=== PATIENT | male | born 1990 | race Two or more races ===

== ENCOUNTER 2018-11-08 11:39 | Emergency (ER) | payer SELFPAY ==
[~2018-11-08] VITALS: Ht 165.1 cm; Wt 68.0 kg
[2018-11-08 11:50] VITALS: BP 122/63
[2018-11-08] MEDS ORDERED: NKM (11:53)
--- NOTE | 2018-11-08 11:55 | NUR ---
ED Nurse Note: Pt came in due to rectal bleeding, bright rd with pain. Denies abd pain and pain at the site at this time. Pt AAO x4, ambulates with non labored breathing. VSS.
[2018-11-08] MEDS ORDERED: Ketorolac 30mg Inj IV ONE (12:15)
[2018-11-08] MEDS ORDERED: Isovue-300 100ml vial INJ PRN (12:15)
--- NOTE | 2018-11-08 12:35 | Emergency Room Report ---
History of Present Illness General Chief Complaint: Pain Source: Patient Present Illness HPI 28-year-old male patient presents the ER complaining of rectal pain and blood on the toilet paper for the past 4 days. Reports pain with sitting. Reports pain with defecation. Reports able to pass gas. Reports able to pass stool, notes blood in stool. Reports bright red blood in stool. Denies black stool. Reports dizziness symptoms during this time. Denies fainting or syncope. Denies history of fainting or syncope. denies diarrhea or vomiting. Also reports chest pain during this time, states has been present intermittently for months. Reports history of similar symptoms over a year ago. Denies history of heart attack. Reports history of "heart beating too fast", states does not take medication for this. Denies hx of high blood pressure. Denies taking medications. Denies fever, shortness of breath, abdominal pain. Denies other aggravating or relieving factors. Denies anal sex. Allergies: Coded Allergies: No Known Allergies (Unverified , 11/08/18) Patient History Past Medical History: see triage record Reviewed Nursing Documentation: PMH: Agreed; PSxH: Agreed Nursing Documentation-PMH Past Medical History: No History, Except For Review of Systems All Other Systems: negative except mentioned in HPI Physical Exam Vital Signs Date Time Temp Pulse Resp B/P (MAP) Pulse Ox O2 Delivery O2 Flow Rate FiO2 11/08/18 11:50 97.7 74 16 122/63 97 Room Air Sp02 EP Interpretation: reviewed, normal General Appearance: well appearing, no apparent distress, alert, GCS 15, non- toxic Head: normocephalic, atraumatic Eyes: bilateral eye normal inspection, bilateral eye PERRL ENT: hearing grossly normal, normal pharynx, no angioedema, normal voice, uvula midline, moist mucus membranes Neck: full range of motion Respiratory: lungs clear, normal breath sounds, no rhonchi, no respiratory distress, no accessory muscle use, no wheezing, speaking full sentences Cardiovascular #1: regular rate, rhythm, no edema Rectal: normal rectal tone, heme negative stool, prostate non-tender, other - no palpable hemorrhoids, no fisure, no anal skin tag Genitourinary: no CVA tenderness Musculoskeletal: back normal, digits/nails normal, gait/station normal, normal range of motion, non-tender Neurologic: alert, oriented x3, responsive, motor strength/tone normal, sensory intact Psychiatric: mood/affect normal Skin: no rash Medical Decision Making PA Attestation Dr. Foster is my supervising Physician whom patient management has been discussed with. Diagnostic Impression: Primary Impression: Rectal pain Additional Impressions: Hemorrhoid Degenerative disc disease Nonspecific chest pain ER Course Pt. presents to the ED c/o blood on toilet paper and chest pain. Ddx considered but are not limited to constipation, anal tag, anal fissure, diverticulitis, hemorrhoids, abscess, IL, anxiety, UTI. Vital signs: are WNL, pt. is afebrile No orders required at this time. No signs of anemia, no pallor, patient reports no light headedness. ER COURSE: CBC and CMP unremarkable, mild anemia noted, does not require blood transfusion at this time. No elevation WBCs or LFTs. Provide with IV fluids. UA shows no signs of infection. Troponin within normal limits, EKG unremarkable, no ST elevations or atrial fibrillation. Low suspicion for IL. Lungs clear to auscultation. Follow-up with drafter geophysical, no suspicion for cardiac etiology of symptoms at this time. Chest pain intermittent and present for the past year. CT abdomen pelvis with contrast shows no acute findings, mild DJD noted at L4-L5 , old granulomatous disease. Discuss results with the patient. Provided patient with copy of results. Instructed patient to followup with PCP and discuss results of report with patient, discuss need for further treatment and referral. Fecal occult blood positive. other - no palpable veins, no TTP, stool brown in color, no red or black stool on rectal exam, no anal fissure, no skin tag No visible hemorrhoids. No anal fissure, no skin tags. No palpable veins or hemorrhoids on rectal exam. Discuss patient care with Dr. Foster. Will treat patient for hemorrhoids with Anusol, followup with primary care and discuss referral to GI and surgery as needed. Provide Colace for constipation. Instructed patient to drink plenty of fluids. Provided with contact information for GI specialist and soil fertility extension specialist. Provided with contact information for free low-cost healthcare clinics. ER precautions given. DISCHARGE: Rx provided for Anusol Rx provided for Colace Rx provided for Ibuprofen At this time pt is stable for d/c to home. Patient is resting comfortably, in no acute distress, nontoxic appearing, talking without difficulty. Patient to take medications as instructed Will provide with patient care instructions and any necessary prescriptions. Care plan and follow-up instructions provided. Patient instructed to follow-up with primary care provider in 3 - 5 days. Patient questions asked and answered. Patient reports understanding and agreement to treatment plan. ER precautions given. Patient instructed to return to ER immediately for any new or worsening of symptoms including but not limited to increasing SOB, persistent fever. - Please note that this Emergency Department Report was dictated using [employer] medicine chief technologist technology software, occasionally this can lead to erroneous entry secondary to interpretation by the dictation equipment. Labs Test 11/08/18 12:30 White Blood Count 4.5 K/UL (4.8-10.8) Red Blood Count 4.63 M/UL (4.70-6.10) Hemoglobin 13.9 G/DL (14.2-18.0) Hematocrit 39.7 % (42.0-52.0) Mean Corpuscular Volume 86 FL (80-99) Mean Corpuscular Hemoglobin 29.9 PG (27.0-31.0) Mean Corpuscular Hemoglobin Concent 34.9 G/DL (32.0-36.0) Red Cell Distribution Width 11.4 % (11.6-14.8) Platelet Count 189 K/UL (150-450) Mean Platelet Volume 7.6 FL (6.5-10.1) Neutrophils (%) (Auto) 48.6 % (45.0-75.0) Lymphocytes (%) (Auto) 39.4 % (20.0-45.0) Monocytes (%) (Auto) 10.2 % (1.0-10.0) Eosinophils (%) (Auto) 0.8 % (0.0-3.0) Basophils (%) (Auto) 1.0 % (0.0-2.0) Urine Color Pale yellow Urine Appearance Slightly cloudy Urine pH 7 (4.5-8.0) Urine Specific [place] 1.015 (1.005-1.035) Urine Protein Negative (NEGATIVE) Urine Glucose (UA) Negative (NEGATIVE) Urine Ketones Negative (NEGATIVE) Urine Blood Negative (NEGATIVE) Urine Nitrite Negative (NEGATIVE) Urine Bilirubin Negative (NEGATIVE) Urine Urobilinogen Normal MG/DL (0.0-1.0) Urine Leukocyte Esterase Negative (NEGATIVE) Sodium Level 141 MMOL/L (136-145) Potassium Level 3.6 MMOL/L (3.5-5.1) Chloride Level 105 MMOL/L (98-107) Carbon Dioxide Level 27 MMOL/L (21-32) Anion Gap 9 mmol/L (5-15) Blood Urea Nitrogen 16 mg/dL (7-18) Creatinine 0.7 MG/DL (0.55-1.30) Estimat Glomerular Filtration Rate > 60 mL/min (>60) Glucose Level 97 MG/DL (74-106) Calcium Level 8.9 MG/DL (8.5-10.1) Total Bilirubin 0.4 MG/DL (0.2-1.0) Aspartate Amino Transf (AST/SGOT) 30 U/L (15-37) Alanine Aminotransferase (ALT/SGPT) 49 U/L (12-78) Alkaline Phosphatase 111 U/L (46-116) Troponin I 0.031 ng/mL (0.000-0.056) Total Protein 7.4 G/DL (6.4-8.2) Albumin 4.0 G/DL (3.4-5.0) Globulin 3.4 g/dL Albumin/Globulin Ratio 1.2 (1.0-2.7) Lipase 80 U/L (73-393) EKG Diagnostic Results Rate: normal Rhythm: NSR ST Segments: no acute changes ASA given to the pt in ED: No PA Scribe Text Pierre Jacobo PA-C Rhythm Strip Diag. Results EP Interpretation: yes Rate: 63 Rhythm: NSR, no PVC's, no ectopy PA Scribe Text Pierre Jacobo PA-C CT/MRI/US Diagnostic Results CT/MRI/US Diagnostic Results : Imaging Test Ordered: CT abdomen pelvis with contrast Impression No acute findings in the abdomen or pelvis identified. Mild degenerative disc disease at L4-5. Old granulomatous disease Last Vital Signs Date Time Temp Pulse Resp B/P (MAP) Pulse Ox O2 Delivery O2 Flow Rate FiO2 11/08/18 11:50 97.7 16 122/63 97 Room Air 11/08/18 11:50 74 Status: improved Disposition: HOME, SELF-CARE Condition: Stable Scripts Ibuprofen* (MOTRIN*) 600 Mg Tablet 600 MG ORAL Q8H PRN for For Pain, #30 TAB 0 Refills Prov: Tyson Jacobo 11/08/18 Docusate Sodium* (COLACE*) 100 Mg Capsule 100 MG ORAL THREE TIMES A DAY, #30 CAP Prov: Tyson Jacobo 11/08/18 Hydrocortisone Acetate* (ANUSOL-HC*) 25 Mg Supp.rect 1 SUPP RECTAL TWICE A DAY, #20 SUPP Prov: Tyson Jacobo 11/08/18 Referrals: NOT CHOSEN IPA/MD,REFERRING (PCP) Patient Instructions: Degenerative Disk Disease, Hemorrhoids, [id number], Nonspecific Chest Pain, [id number] Additional Instructions: Followup with primary care provider in 3 -5 days. Follow-up with GI specialist. Follow-up with solar energy sales specialist to have cardiac stress testing performed. Drink plenty fluids. High-fiber diet. Take Colace to help soften stool. Take medications as directed. Patient questions asked and answered. ER precautions given, patient instructed to return to ER immediately for any new or worsening of symptoms. Tyson Jacobo Nov 08, 2018 12:35
[2018-11-08 13:00] LABS: APPEARANCE,URINE SLIGHTLY CLOUDY; BILIRUBIN, URINE NEGATIVE (NEGATIVE); COLOR,URINE PALE YELLOW; GLUCOSE, URINE (UA) NEGATIVE (NEGATIVE); KETONES,URINE NEGATIVE (NEGATIVE); LEUKOCYTE ESTERASE ,URINE NEGATIVE (NEGATIVE); NITRITE,URINE NEGATIVE (NEGATIVE); PH,URINE 7 (4.5-8.0); PROTEIN,URINE NEGATIVE (NEGATIVE); UROBILINOGEN,URINE NORMAL MG/DL (0.0-1.0)
[2018-11-08 13:02] LABS: EOSINOPHILS % (AUTO) 0.8 % (0.0-3.0); HEMATOCRIT 39.7 % (42.0-52.0); HEMOGLOBIN 13.9 G/DL (14.2-18.0); LYMPHOCYTES % (AUTO) 39.4 % (20.0-45.0); MEAN CORPUSCULAR VOLUME 86 FL (80-99); MONOCYTES % (AUTO) 10.2 % (1.0-10.0); NEUTROPHILS % (AUTO) 48.6 % (45.0-75.0); PLATELET COUNT 189 K/UL (150-450); RED BLOOD COUNT 4.63 M/UL (4.70-6.10); RED CELL DISTRIBUTION WIDTH 11.4 % (11.6-14.8); WHITE BLOOD COUNT 4.5 K/UL (4.8-10.8)
[2018-11-08 13:10] LABS: ANION GAP 9 mmol/L (5-15); BLOOD UREA NITROGEN 16 mg/dL (7-18); CALCIUM 8.9 MG/DL (8.5-10.1); CARBON DIOXIDE 27 MMOL/L (21-32); CHLORIDE 105 MMOL/L (98-107); CREATININE 0.7 MG/DL (0.55-1.30); POTASSIUM 3.6 MMOL/L (3.5-5.1); SODIUM 141 MMOL/L (136-145)
[2018-11-08 13:15] LABS: ALANINE AMINOTRANSFERASE 49 U/L (12-78); ALBUMIN/GLOBULIN RATIO 1.2 (1.0-2.7); ALKALINE PHOSPHATASE 111 U/L (46-116); ASPARTATE AMINO TRANSFERASE 30 U/L (15-37); BILIRUBIN,TOTAL 0.4 MG/DL (0.2-1.0)
--- NOTE | 2018-11-08 14:26 | Diagnostic Imaging Report ---
Indication: Abdominal pain Technique: Continuous helical transaxial imaging of the abdomen and pelvis was obtained from the lung bases to the pubic symphysis during intravenous contrast administration. Coronal 2-D reformats were also obtained. Study obtained in a Siemens sensation [address] Automatic Exposure Control was utilized. Total Dose length Product (DLP): 696.[address] Dose Index Volume (CTDIvol): 12.6 mGy Comparison: None Findings: Bowel gas pattern is nonspecific. There is no free fluid. Partial visualization of the appendix is normal. The area of the rectum is unremarkable. The liver and spleen, pancreas, kidneys, adrenal glands, gallbladder appear unremarkable. The lung bases appear clear. There is a calcified granuloma at the left lung base. There is calcification of the posterior aspect of slightly bulging annulus fibrosis at L4-5. The disc is mildly narrowed. IMPRESSION: No acute findings in the abdomen or pelvis identified. Mild degenerative disc disease at L4-5. Old granulomatous disease The CT scanner at [facility] is accredited by the [employer] and the scans are performed using dose optimization techniques as appropriate to a performed exam including Automatic Exposure control.
[2018-11-08] MEDS ORDERED: ANUSOL-HC25 MG RECTAL (14:41)
[2018-11-08] MEDS ORDERED: IBUPROFEN600 MG ORAL (14:41)
[2018-11-08] MEDS ORDERED: COLACE100 MG ORAL (14:41)
[2018-11-08 14:52] VITALS: BP 120/65
--- NOTE | 2018-11-08 14:53 | NUR ---
ED Nurse Note: A/OX4. PT IS CLEARED BY DR. VELOZ. DC INSTRUCTION AND PRESCRITPIONS GIVEN, PT VERBALIZED UNDERSTANDING. IV AND ID WRIST BAND REMOVED. ALL BELONGINGS GIVEN. PT AMBULATED OUT OF ER WITH STEADY GAIT. DENIES PAIN AT THIS TIME.
--- NOTE | 2018-11-09 13:45 | Cardiology Report ---
APPROVED REPORT EKG Measurement Heart [id number] Normal sinus rhythm Normal ECG
== END 2018-11-08 14:52 | disposition home or self-care (01) ==
LOC: EMR 12:10
DX: K62.89 Other specified diseases of anus and rectum (principal); K64.9 Unspecified hemorrhoids; R07.9 Chest pain, unspecified; M51.36 Other intervertebral disc degeneration, lumbar region
CPT/HCPCS: 36415; 74177; 80053; 81003; 83690; 84484; 85025; 93005; 96361; 96374; 99284; J1885; Q9967